=== PATIENT | male | born 1990 | race Caucasian/White ===

== ENCOUNTER 2018-12-24 11:22 | Emergency (ER) | payer OTHER, MEDICAID ==
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
== END 2018-12-24 13:34 | disposition home or self-care (01) ==
LOC: DL.ED 11:22
DX: S60.221A Contusion of right hand, initial encounter (principal); S20.211A Contusion of right front wall of thorax, initial encounter; W00.9XXA Unspecified fall due to ice and snow, initial encounter
CPT/HCPCS: 71111; 73130-LT; 73130-RT; 99283-25

== ENCOUNTER 2019-12-03 15:47 | Emergency (ER) | payer MEDICAID ==
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
== END 2019-12-03 18:47 | disposition home or self-care (01) ==
LOC: DL.ED 15:47
DX: S89.92XA Unspecified injury of left lower leg, initial encounter (principal); Z88.8 Allergy status to other drugs, medicaments and biological substances; Z88.0 Allergy status to penicillin; W19.XXXA Unspecified fall, initial encounter
CPT/HCPCS: 99283

== ENCOUNTER 2021-08-26 16:32 | Emergency (ER) | payer MEDICAID ==
[2021-08-26] MEDS ORDERED: Bacitracin Oint 1 GM U/D Packet TOP ONE (17:24)
--- NOTE | 2021-08-26 17:27 | CR ---
EXAMINATION: Ankle Min 3V Lt SEX: Male AGE: 31 years CLINICAL HISTORY: 31-year-old male injured in fall. Now ankle pain. INTERPRETATION: 1. Orthopedic plate anchored with 4 screws in the distal tibial diaphysis, anteriorly. 2. Minimal soft tissue swelling. No ankle joint effusion. 3. *No sign of acute left ankle fracture or dislocation. 4. Small heel spur at insertion of plantar aponeurosis base of the os calcis.
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
== END 2021-08-26 18:00 | disposition home or self-care (01) ==
LOC: DL.ED 16:32
DX: S96.912A Strain of unspecified muscle and tendon at ankle and foot level, left foot, initial encounter (principal); S60.412A Abrasion of right middle finger, initial encounter; S60.414A Abrasion of right ring finger, initial encounter; Z88.0 Allergy status to penicillin; Z88.8 Allergy status to other drugs, medicaments and biological substances; W00.0XXA Fall on same level due to ice and snow, initial encounter
CPT/HCPCS: 73610-LT; 99283

== ENCOUNTER 2022-04-23 11:05 | Emergency (ER) | payer MEDICAID | END 2022-04-23 13:20 | disposition home or self-care (01) | LOC: DL.ED 11:05 | DX: S40.011A Contusion of right shoulder, initial encounter (principal); E66.9 Obesity, unspecified; Z88.0 Allergy status to penicillin; Z88.5 Allergy status to narcotic agent; Z68.29 Body mass index [BMI] 29.0-29.9, adult; W01.0XXA Fall on same level from slipping, tripping and stumbling without subsequent striking against object, initial encounter | CPT/HCPCS: 71101-RT; 73030-RT; 73070-RT; 99283 ==

== ENCOUNTER 2023-04-27 16:15 | Emergency (ER) | payer MEDICAID | END 2023-04-27 18:00 | disposition home or self-care (01) | LOC: DL.ED 16:15 | DX: S62.35 Nondisplaced fracture of shaft of other metacarpal bone (principal); K21.9 Gastro-esophageal reflux disease without esophagitis; E66.9 Obesity, unspecified; Z68.28 Body mass index [BMI] 28.0-28.9, adult; Z88.0 Allergy status to penicillin; Z88.1 Allergy status to other antibiotic agents; Z79.899 Other long term (current) drug therapy | CPT/HCPCS: 29125; 99283 ==

== ENCOUNTER 2023-04-28 11:31 | Emergency (ER) | payer MEDICAID | END 2023-04-28 11:40 | disposition left against medical advice (07) | LOC: DL.ED 11:31 | DX: Z53.21 Procedure and treatment not carried out due to patient leaving prior to being seen by health care provider (principal) ==

== ENCOUNTER 2024-06-08 07:28 | Day surgery (SDC) | payer MEDICAID ==
[~2024-06-08 07:28] MED LIST: Dextrose 5%-0.45% NaCl 1,000 ML IV SCH
[2024-06-08] MEDS ORDERED: Lidocaine 1% 30 ML SDV NERVRT ONE (07:29)
[2024-06-08] MEDS ORDERED: Propofol 200 MG/20 ML SDV IV ONE (07:29)
[2024-06-08] MEDS: Lactated Ringers 1,000 ML IV SCH (07:47)
== END 2024-06-08 09:46 | disposition home or self-care (01) ==
LOC: DL.ENDO 07:28
PROVIDERS: ATTEND Internal Medicine Gastroenterology
DX: K59.09 Other constipation (principal)
CPT/HCPCS: 45378; J2704; J7120; J3490